=== PATIENT | male | born 1940 | race Caucasian/White ===

== ENCOUNTER 2023-07-16 22:00 | Emergency (ER) | payer MEDICARE, OTHER, SELFPAY ==
[2023-07-16 22:00] VITALS: BMI 29.3
[2023-07-16 22:06] VITALS: BP 161/78
--- NOTE | 2023-07-17 00:20 | ED.SKININJ ---
HPI-Injury
General
Chief Complaint: Skin Surface Trauma
Source: patient and previous hospital records (ED visit May 17 where patient complained of left lower leg swelling after prolonged sitting. DVT study negative for DVT.)
Exam Limitations: none
Time Seen by Provider: 07/16/23 23:54
Nursing documentation reviewed up to this point in time: agreed with
Travel History
Have you had any contact with someone who has COVID-19?: No
Do you have any symptoms of coronavirus? Fever > 100 degrees, chills, cough, shortness of breath, sore throat, loss of taste or smell, muscle aches, or headache?: No
History of Present Illness-Injury
Initial Injury comments:
This is an 83-year-old gentleman who resides with his at [facility]. They also own home in a [facility] in [place] and he has been flying back and forth from [place] to [facility] in preparation to relocate
permanently in [place]. He has history of DJD of right hip for which she follows with orthopedics in [place] and undergoes local steroid injections generally every 6 months with last injection approximately 6 months ago. He does admit to
chronic right hip pain and takes Tylenol sporadically for pain.
While in the [place] airport this evening around 4 PM, he was running late attempting to catch his flight home when his right hip 'gave out' and he fell forward striking his right brow/right face on a pillar as well as striking the back of his
right hand. Patient states he did not fall to the ground, did not fall on his hands and knees, did not lose consciousness. He did suffer a laceration/abrasion to his right medial brow, right lateral orbit as well as a skin tear with to his right
posterior hand. He was able to board his flight and has driven home from [place] and arrived to the ED for further evaluation.
He does not admit to chronic right hip pain, but right hip pain is much worse this evening. He denies back pain, he denies radiation of the pain, no weakness nor numbness. He also notes moderate generalized headache as well as posterior neck pain.
He denies arm pain, no weakness nor numbness of his arms or hands. He denies chest pain, no shortness of breath, no nausea nor vomiting, no dizziness nor lightheadedness.
He has not taken anything for discomfort.
He is unsure as to his last Tdap believes this was greater than 5 years ago.
He takes no anticoagulants other than 81 mg aspirin daily.
His other daily medications include triamterene, Altace, Norvasc, allopurinol, Lipitor, vitamin D3
Past History
Past History
ED Past Medical History: CAD (coronary stent), HTN, Hypercholesterolemia and Other (Gout, DJD right hip)
ED Past Surgical History: Orthopedic (L. total knee replacement )
Social History
Tobacco: Non-smoker
Personal:
Living: with family
Employment: Retired
Family History
Family History: Other (Noncontributory)
Skin Exam
Laceration
Right Superior Medial Eye brow:
Length in cm: 1.5
Orientation: vertical
Type of Laceration: simple (Very superficial laceration/abrasion)
Any active bleeding?: no active bleeding
Distal skin color and temperature: normal-warm & good color
Normal distal neurovascular exam: Yes
Range of motion: full
Right Middle Dorsal Hand:
Length in cm: 1.2
Orientation: C shaped
Type of Laceration: simple (Superficial skin tear/flap)
Any active bleeding?: no active bleeding
Distal skin color and temperature: normal-warm & good color
Normal distal neurovascular exam: Yes
Range of motion: full
Phy Exam
Physical Exam
Physical Exam:
TRAUMA EXAM:
VITAL SIGNS: Vital signs reviewed, cooperative
DISTRESS: No active disease
EYES: There is a soft tissue contusion with superficial laceration abrasion right medial proximal brow just above medial eyebrow on the right. No active bleeding. Mild local tenderness to palpation. There is a 3 mm horizontal superficial
laceration right lateral inferior orbital region just below the lower eyelid. There is no involvement of eyelid. Laceration is very superficial and well-approximated. No active bleeding and no soft tissue swelling. There is superficial
abrasion/contusion right lateral orbit with no local tenderness to palpation. Pupils are equal and reactive to light, extraocular muscles intact. Visual acuity intact. Sclera and conjunctiva intact.
NOSE: No deformity or epistaxis
FACE AND SCALP: No scalp trauma, external canals no blood
NECK: Supple, mild tenderness mid to distal cervical spine. No palpable bony abnormality. Minimally limited range of motion related to pain.
BACK: Back nontender, pelvis stable to compression
RESPIRATORY: No distress, breath sounds normal, no tender chest wall
CARDIAC: No murmur, pulses equal and strong
ABDOMEN: Soft nontender bowel sounds normal
SKIN: Warm and dry, normal color. Fair turgor.
EXTREMITIES: 1.2 cm curved skin tear/superficial flap laceration dorsal aspect of the right hand. There is no soft tissue swelling, no palpable bony tenderness. There is full digit and wrist range of motion without difficulty nor pain. There is
mild tenderness about the right hip, full right hip range of motion with increased pain with external and internal rotation against resistance. There is no leg length discrepancy. No tenderness about the thigh nor day. No palpable bony pelvic
tenderness.
NEUROLOGICAL: Alert, oriented, no motor deficits
PSYCH: Mood affect normal
Course
Orders/Labs/Results
Orders:
Orders
07/17/23 00:12
CT Cervical Spine W/o Iv Contr Urgent
Comment:
Reason For Exam: fall, head injury, post neck pain
Acetaminophen [Tylenol] 1,000 mg PO NOW STA
Tetanus/Diphth/Acelpertussis [Adacel] 0.5 ml IM .ONCE ONE
Hip, Right 2-3 Views [CR Hip - RT w/wo Pel 2-3 Vw*] Urgent
Comment:
Reason For Exam: fall, R hip pain
Include a pelvis x-ray?: Yes
07/17/23 00:13
CT Head W/o Iv Contrast Urgent
Comment:
Reason For Exam: fall, head injury, h/a
Vital Signs
Initial and Last Documented VS:
Initial Vital Signs
Temp Pulse Resp BP Pulse Ox
98.2 F 74 16 161/78 99
07/16/23 22:06 07/16/23 22:06 07/16/23 22:06 07/16/23 22:06 07/16/23 22:06
Last Documented Vital Signs
Temp Pulse Resp BP Pulse Ox
98.2 F 74 16 161/78 99
07/16/23 22:06 07/16/23 22:06 07/16/23 22:06 07/16/23 22:06 07/16/23 22:06
MDM/Problems Addressed
Differential Diagnosis Includes:
Patient presents with mechanical fall forward striking his face and right hand on an upright pillar.
Due to advanced age, maintained on aspirin, head trauma and complains of headache concern for intracranial injury thus will check CT of the head.
Due to complaints of neck pain, head injury, advanced age, concern for occult C-spine fracture thus will check C-spine CT. It is reassuring that he has no focal neurodeficits.
Patient has known DJD of right hip but complains of increased pain of right hip after fall, concern for occult fracture of right hip/pelvis thus will check x-ray of right hip and pelvis.
Right brow laceration and skin tear of right hand have been thoroughly irrigated by myself and repaired with Dermabond wound glue.
Will update Tdap.
Will give Tylenol for pain.
*Radiology
Radiology exam reviewed: preliminary read by ED provider (Right hip/pelvic x-ray negative for fracture. Minimal DJD.) and radiology read reviewed (C-spine of head and cervical spine negative for acute traumatic findings.)
*Pulse Oximetry
Patient hypoxic: no
*Critical Care Note
Total Time (30-74mins, 75-104mins- exclusive of procedures): Not Applicable
ED Attending Note
-
Portions of this chart may have been created with voice recognition software.� Occasional wrong word or��sound alike� substitutions may have occurred due to the inherent limitations of voice recognition software.
Discharge Plan
Departure
Patient Disposition: Home (Routine Discharge)
Date of Disposition: 07/17/23
Time of Disposition: 01:13
Patient with high blood pressure during this ER visit?: No
Condition: Good
Discharge Problem:
forehead contusion with laceration, Contusion of right orbit, right dorsal hand skin tear, acute on chronic right hip pain
Instructions: Laceration Repair With Glue (DC), Hip Pain (DC), Tdap vaccine
Prescriptions:
No Action
aspirin 81 mg Tablet,Chewable
81 mg PO DAILY
Referrals:
UNKNOWN - PT DOES,NOT KNOW [Family Provider] -
Activity Restrictions/Additional Instructions:
Keep wounds clean and dry. Dermabond skin glue will crack and flake off in approximately 7 to 10 days.
Continue Tylenol as needed for pain.
Follow-up with your orthopedist in [place] or here locally for recheck of right hip pain.
Follow-up with your primary care physician for recheck.
Interventions
Interventions:
*Risk Screen - Suicide Last Done: 07/16/23 22:06
*Neglect/Abuse Screening Last Done: 07/16/23 22:06
*ED COVID-19 Vaccine History Last Done: 07/16/23 22:06
[2023-07-17] MEDS: TYLENOL 1000 MG PO (00:25)
[2023-07-17] MEDS: ADACEL 0.5 ML IM (00:50)
[2023-07-17 01:35] VITALS: BP 161/72
== END 2023-07-17 01:41 | disposition home or self-care (01) ==
LOC: EMR 22:00
PROVIDERS: EMERGENCY PHYSICIAN Emergency Medicine
DX: S61.411A Laceration without foreign body of right hand, initial encounter (principal); S00.81XA Abrasion of other part of head, initial encounter; G89.29 Other chronic pain; M25.551 Pain in right hip; M54.2 Cervicalgia; W19.XXXA Unspecified fall, initial encounter; Y92.520 Airport as the place of occurrence of the external cause
CPT/HCPCS: 99285; 90471; 70450; 72125; 73502; 90715